=== PATIENT | male | born 1995 | race Caucasian/White ===

== ENCOUNTER 2017-03-02 20:41 | Emergency (ER) | payer OTHER ==
[2017-03-02 22:16] VITALS: BP 113/67; PULSE 73; RESP 18; TEMP 99; O2SAT 96
--- NOTE | 2017-03-02 22:35 | C.PDOC ---
History Of Present Illness 21 year old male presents to the ER with a complaint of a fever, dry cough, body aches and vomiting since yesterday. Denies SOB, abdominal pain, chest pain , difficulty swallowing, or difficulty breathing. Took Motrin yesterday. Time Seen by Provider: 03/02/17 20:52 Chief Complaint (Nursing): Fever History Per: Patient History/Exam Limitations: no limitations Onset/Duration Of Symptoms: Days Current Symptoms Are (Timing): Still Present Associated Symptoms: Fever, Cough, Vomiting Ear Symptoms: Bilateral: None Recent travel outside of the [place]: No Past Medical History Reviewed: Historical Data, Nursing Documentation, Vital Signs Vital Signs: Last Vital Signs Temp 99 F 03/02/17 22:15 Pulse 73 03/02/17 22:15 Resp 18 03/02/17 22:15 BP 113/67 03/02/17 22:15 Pulse Ox 96 03/03/17 03:51 - Medical History PMH: No Chronic Diseases Surgical History: Appendectomy - [facility] Procedures LAPAROSCOP APPENDECTOMY (07/21/14) Family History: States: Unknown Family Hx - Social History Hx Tobacco Use: No Hx Alcohol Use: No Hx Substance Use: No - Immunization History Hx Tetanus Toxoid Vaccination: No Hx Influenza Vaccination: No Hx Pneumococcal Vaccination: No Review Of Systems Constitutional: Positive for: Fever Cardiovascular: Negative for: Chest Pain Respiratory: Positive for: Cough. Negative for: Shortness of Breath Gastrointestinal: Positive for: Vomiting. Negative for: Other (Difficulty breathing, difficulty swallowing) Physical Exam - Physical Exam Appears: Well, Non-toxic, No Acute Distress Skin: Normal Color, Warm, Dry Head: Atraumatic, Normacephalic Eye(s): bilateral: Normal Inspection, PERRL, EOMI Ear(s): Bilateral: Normal Nose: Normal Oral Mucosa: Moist Throat: Normal, No Erythema, No Exudate Neck: Normal, Normal ROM, Supple Chest: Symmetrical, No Tenderness Cardiovascular: Rhythm Regular Respiratory: Normal Breath Sounds, No Rales, No Rhonchi, No Wheezing Gastrointestinal/Abdominal: Soft, No Tenderness Neurological/Psych: Oriented x3, Normal Speech ED Course And Treatment O2 Sat by Pulse Oximetry: 96 (Room air) Pulse Ox Interpretation: Normal Progress Note: Motrin administered. On reevaluation, patient reports improvement of symtpoms. No SOB, heachache, neck pain, or abdominal pain. Pt denies any complaints or pain. Pt is afebrile, and is able to tolerate PO. Will discharge home with Rx and instructions to follow up with PMD for further evaluation. Disposition - Disposition Disposition: HOME/ ROUTINE Disposition Time: 22:00 Condition: STABLE Additional Instructions: Vaya a burns mdico o la clnica en 1-3 mcnair sin falta, para mas evaluacin. Lynndyl los medicamentos geovanna indicado. Volver a la tk de emergencia en cualquier momento si los sntomas persisten o empeoran. 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 - Scribe Statement The provider has reviewed the documentation as recorded by the Scribbryan Simental All medical record entries made by the Scribbryan were at my direction and personally dictated by me. I have reviewed the chart and agree that the record accurately reflects my personal performance of the history, physical exam, medical decision making, and the department course for this patient. I have also personally directed, reviewed, and agree with the discharge instructions and disposition.
== END 2017-03-02 22:23 | disposition home or self-care (01) ==
LOC: C.ER 20:41
DX: J11.1 Influenza due to unidentified influenza virus with other respiratory manifestations (principal); R50.9 Fever, unspecified

== ENCOUNTER 2017-12-04 00:23 | Emergency (ER) | payer OTHER ==
[2017-12-04 00:37] VITALS: BP 131/72; PULSE 69; RESP 18; TEMP 98.8; O2SAT 96
--- NOTE | 2017-12-04 01:08 | C.PDOC ---
History Of Present Illness 22 year old male presents to the ED c/o lower back pain for the past 2 days. Patient reports pain worsens with movement. Patient took Advil at 21:00 today. Patient denies injury, fall, trauma, weakness, numbness, saddle anesthesia, bowel incontinence. Time Seen by Provider: 12/04/17 00:45 Chief Complaint (Nursing): Back Pain History Per: Patient History/Exam Limitations: no limitations Onset/Duration Of Symptoms: Days Current Symptoms Are (Timing): Still Present Quality Of Discomfort: "Pain" Associated Symptoms: None Exacerbating Factor(s): Movement Recent travel outside of the [place]: No Additional History Per: Patient Past Medical History Reviewed: Historical Data, Nursing Documentation, Vital Signs Vital Signs: Last Vital Signs Temp 98.8 F 12/04/17 00:34 Pulse 69 12/04/17 00:34 Resp 18 12/04/17 00:34 BP 131/72 12/04/17 00:34 Pulse Ox 96 12/04/17 00:34 - Medical History PMH: No Chronic Diseases Surgical History: Appendectomy - [facility] Procedures LAPAROSCOP APPENDECTOMY (07/21/14) Family History: States: Unknown Family Hx - Social History Hx Tobacco Use: No Hx Alcohol Use: Yes Hx Substance Use: No - Immunization History Hx Tetanus Toxoid Vaccination: No Hx Influenza Vaccination: No Hx Pneumococcal Vaccination: No Review Of Systems Constitutional: Negative for: Fever, Chills Cardiovascular: Negative for: Chest Pain Respiratory: Negative for: Shortness of Breath Gastrointestinal: Negative for: Nausea, Vomiting, Abdominal Pain Musculoskeletal: Positive for: Back Pain Skin: Negative for: Rash Neurological: Negative for: Weakness, Numbness Physical Exam - Physical Exam Appears: Non-toxic, No Acute Distress Skin: Normal Color, Warm, Dry Head: Atraumatic, Normacephalic Eye(s): bilateral: Normal Inspection Neck: Normal ROM, Supple Chest: Symmetrical Cardiovascular: Rhythm Regular Respiratory: Normal Breath Sounds, No Wheezing Gastrointestinal/Abdominal: Soft, No Tenderness Back: Normal Inspection, No CVA Tenderness, Paraspinal Tenderness (paralumbar) Extremity: Normal ROM, No Tenderness, No Swelling Extremity: Bilateral: Atraumatic, Normal Color And Temperature Neurological/Psych: Oriented x3, Normal Speech, Normal Cognition, Normal Motor, Normal Sensation Gait: Steady ED Course And Treatment O2 Sat by Pulse Oximetry: 96 (ON RA) Pulse Ox Interpretation: Normal Progress Note: On reassessment, patient is resting comfortably, with improvement of back pain. Patient remains afebrile, with no bony tenderness, extremity numbness or weakness, or abdominal pain. Patient is ambulatory in the emergency department with no signs of discomfort. Patient was advised to follow up with physician/clinic in 1-2 days. Disposition Counseled Patient/Family Regarding: Diagnosis, Need For Followup, Rx Given - Disposition Referrals: [facility] [Outside] Disposition: HOME/ ROUTINE Disposition Time: 01:06 Condition: STABLE Additional Instructions: Melissa las medicinas Sigue en clinica Regresa si peor Prescriptions: Cyclobenzaprine [Cyclobenzaprine HCl] 10 mg PO HS #10 tab Ibuprofen [Motrin] 600 mg PO Q6H #20 tab Instructions: Low Back Pain (DC) Forms: [employer] (French), Work Excuse Print Language: PALESTINIAN - Clinical Impression Clinical Impression: Low back pain - 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 - Scribe Statement The provider has reviewed the documentation as recorded by the Scribe Ibrahima Echeverria All medical record entries made by the Felipaibbryan were at my direction and personally dictated by me. I have reviewed the chart and agree that the record accurately reflects my personal performance of the history, physical exam, medical decision making, and the department course for this patient. I have also personally directed, reviewed, and agree with the discharge instructions and disposition.
== END 2017-12-04 01:23 | disposition home or self-care (01) ==
LOC: C.ER 00:23
DX: M54.5 Low back pain (principal)